=== PATIENT | female | born 1995 | race Caucasian/White ===

== ENCOUNTER 2018-08-08 14:03 | Emergency (ER) | payer MEDICAID ==
[~2018-08-08] VITALS: Ht 157.5 cm; Wt 77.1 kg
[~2018-08-08 14:03] MED LIST: PREN1TAB49 PO
[2018-08-08 14:21] VITALS: Ht 157.5 cm; Wt 77.1 kg
[2018-08-08] MEDS ORDERED: ACETAMINOPHEN 500 MG TAB PO STA (17:45)
[2018-08-08] MEDS ORDERED: D-ME473S2 PO (17:51)
[2018-08-08] MEDS ORDERED: OSEL75CA23 PO (17:51)
[2018-08-08] MEDS ORDERED: IBUP-1542 PO (17:51)
--- NOTE | 2018-08-08 17:55 | ERD ---
ER Documentation Chief Complaint Chief Complaint Fever, ST, nasal congestion X 1 day HPI This is a 22-year-old female who presents ED with flulike symptoms for the past 2 days. Patient admits to fever, sore throat, nasal congestion, headache, body aches, cough with sputum production. Denies chest pain, shortness breath, trouble breathing, neck pain, nausea, vomiting, diarrhea, constipation or other symptoms. No known drug allergies. Did not receive flu shot this year. ROS All systems reviewed and are negative except as per history of present illness. Medications Home Meds Active Scripts Dextromethorphan Hb-Promethazine Hcl* (Promethazine DM* Syrup) 473 Ml Syrup, 5 ML PO Q6 PRN for COUGH for 5 Days, ML Prov:ABNER MOCK PA-C 08/08/18 Oseltamivir Phosphate* (Tamiflu*) 75 Mg Capsule, 75 MG PO BID for 5 Days, CAP Prov:ABNER MOCK PA-C 08/08/18 Ibuprofen* (Motrin*) 600 Mg Tab, 600 MG PO Q6, #30 TAB Prov:ABNER MOCK PA-C 08/08/18 Reported Medications Vits W-Ca,Fe,Fa(<1MG) () 1 Tab Tablet, 1 TAB PO DAILY 06/02/11 Allergies Allergies: Coded Allergies: No Known Allergies (Verified Allergy, 06/02/11) PMhx/Soc Medical and Surgical Hx: pt denies Medical Hx, pt denies Surgical Hx Hx Alcohol Use: No Hx Substance Use: No Hx Tobacco Use: No Smoking Status: Never smoker FmHx Family History: No diabetes Physical Exam Vitals Vital Signs Date Temp Pulse Resp B/P (MAP) Pulse Ox O2 O2 Flow FiO2 Time Delivery Rate 08/08/18 100.9 106 18 117/83 99 14:21 (94) Physical Exam Physical Exam Vitals signs: Reviewed by me. General: Well developed, well nourished, in no acute distress. Patient is awake and alert. Head: Normocephalic, atraumatic. Eyes: Normal conjunctiva, Pupils PERRLA, EOM intact grossly ENT: Pharynx is clear, Moist mucous membranes, external ears, nose and mouth normal, no tonsillar adenopathy, exudate or erythema, no kissing tonsils, no uvula deviation, tympanic membrane visualized bilaterally with no bulging, erythema, purulent air-fluid level seen, normal nasal mucosa Neck: Supple, no masses, lymphadenopathy or JVD Respiratory: Clear to auscultation bilaterally with no wheezing, rhonchi, rales, no distress Cardiovascular: RRR, no murmurs, rubs, or gallops Neurologic: Alert and oriented, moving all extremities, normal speech, no focal weakness, no cerebellar signs. Normal mentation Skin: warm and dry, No rash Psych: Normal mood Results 24 hrs Current Medications Medications Dose Sig/Trudi Start Time Status Last (Trade) Ordered Route PRN Stop Time Admin Dose Reason Admin Ibuprofen 600 mg ONCE ONCE 08/08/18 (Motrin) PO 18:00 08/08/18 18:01 1,000 mg ONCE STAT 08/08/18 DC Acetaminophen PO 17:45 08/08/18 (Tylenol 17:46 Tab) Procedures/MDM ER COURSE: The patient was stable throughout ED course. I kept the patient and/or family informed of laboratory and diagnostic imaging results throughout the emergency room course. The patient was promptly evaluated and a treatment plan was devised based on H&P and other data. This plan was discussed with the patient who agreed and had no further questions or concerns prior to discharge. MEDICAL DECISION MAKING: This is a 22-year-old female with a nonsignificant past medical history presents ED with flulike symptoms for the past 2 days. The patient's clinical presentation is very consistent with influenza. No evidence of pneumonia. The patient is well-appearing without respiratory distress. Normal oxygen saturation. X-ray imaging not indicated. The patient does not exhibit any clinical signs or symptoms concerning for serious bacterial infection or systemic illness. Based on history and clinical exam findings the patient does not appear to have evidence of pneumonia, strep pharyngitis, urinary tract infection, bacteremia, sepsis, or meningitis. For these reasons I do not believe it is necessary to obtain laboratory testing or diagnostic imaging. I believe it would be appropriate for symptom control, and close outpatient primary care follow-up. We discussed follow up with the patient's primary care doctor within 24 to 48 hours as needed. We also discussed return to the emergency room for worsening symptoms or worsening condition. DISPOSITION PLAN: We discussed follow up with the patient's primary care doctor within 24 to 48 hours. Patient counseled regarding my diagnostic impression and care plan. Prior to discharge all questions answered. Pt agrees with treatment plan and understands strict return precautions. Precautionary instructions provided including instructions to return to the ER if not improving or for any worsening or changing symptoms or concerns. ExitCare instructions provided. Prior to discharge, patients vital signs have been reviewed SPECIALIST FOLLOW UP RECOMMENDED: None Patient has been advised to follow up with primary care in 1-2 days. Disclaimer: Inadvertent spelling and grammatical errors are likely due to EHR/dictation software use and do not reflect on the overall quality of patient care. Also, please note that the electronic time recorded on this note does not necessarily reflect the actual time of the patient encounter. Departure Diagnosis: Primary Impression: Influenza Condition: Stable Patient Instructions: Influenza (Adult) [facility] Usted se aguero hecho un examen mdico de control que le indica que no est en olga lidia condicin que requiera tratamiento urgente en el Departamento de Emergencia. Un estudio ms profundo y el tratamiento de maciel condicin pueden esperar sin ningn riesgo hasta que usted sea atendida/o en el consultorio de maciel mdico o olga lidia clnica. Es responsabilidad suya arreglar olga lidia yunier para el seguimiento del karthik. MANEJO DE CONDICIONES NO URGENTES EN EL FUTURO 1) Si usted tiene un mdico de atencin primaria: Usted debera llamar a maciel mdico de atencin primaria antes de venir al departamento de emergencia. Despus de las horas de consultorio, maciel doctor o maciel asociado/a est disponible por telfono. El mdico o enfermero de anyi en el servicio telefnico puede asesorarle por ofe medio para atender el problema, o karthik contrario se puede programar olga lidia yunier. 2) Si usted no tiene un mdico de atencin primaria: Llame al mdico o clnica de referencia que aparece abajo windy las horas de consultorio para hacer olga lidia yunier para que le vean. CLINICAS: [facility] [phone] [facility] [phone] [facility] [phone] [place] [id number] [phone] [facility] [phone] [address] [facility] [phone] [address] Additional Instructions: Paciente aconseja volver a Departamento de urgencias inmediatamente para sntomas nuevos o que empeoran . Paciente aconseja posteriores con el PCP en 1-2 bay . Paciente verbaliza la comprehensin y est de acuerdo con el tratamiento y el curso de accin. Si el paciente no tiene ninguna de atencin primaria pueden seguir con [facility] [id number] [place] [address] o [facility] + [address] [id number] ABNER MOCK PA-C Aug 08, 2018 17:55
[2018-08-08] MEDS ORDERED: IBUPROFEN 600 MG TAB PO ONE (18:00)
[2018-08-08 18:58] VITALS: BP 109/66; PULSE 97; RESP 18
== END 2018-08-08 19:00 | disposition home or self-care (01) ==
LOC: FTE 14:03
DX: J11.1 Influenza due to unidentified influenza virus with other respiratory manifestations (principal)
CPT/HCPCS: Z7502; Z7610; 99283

== ENCOUNTER 2019-01-03 18:23 | Emergency (ER) | payer SELFPAY ==
[~2019-01-03] VITALS: Ht 154.9 cm; Wt 74.0 kg
[~2019-01-03 18:23] MED LIST changes: +CIPR-193 PO; +D-ME473S2 PO; +IBUP-1542 PO; +OSEL75CA23 PO
[2019-01-03 18:34] VITALS: BP 130/74; PULSE 73; RESP 16; Ht 154.9 cm; Wt 74.0 kg
[2019-01-03] MEDS ORDERED: KETOROLAC 15 MG INJ IM STA (20:59)
== END 2019-01-03 21:50 | disposition home or self-care (01) ==
LOC: FTE 18:23
DX: N30.00 Acute cystitis without hematuria (principal)
CPT/HCPCS: 81003; 81025; 96372; 99284; J1885